=== PATIENT | male | born 1995 | race Caucasian/White ===

== ENCOUNTER 2017-03-19 13:51 | Inpatient (IN) | payer OTHER ==
[~2017-03-19] VITALS: Ht 175.3 cm; Wt 67.1 kg
--- NOTE | 2017-03-19 15:35 | NUR ---
Pre admission 21 Year old male from [facility]. Patient presents slow responsive, patient is alert and oriented x4, patient reports he is here to detox off of xanax. Reports also using LSD, and marijuana. Patient bp: 124/58 P 69, t: 98.0 r: 16, o2 sat: 98% room air. Patient was explained all policy and procedures with good verbal understanding. Patient denies any food or drug allergies. Patient denies any history of seizures. Reports past medical history of anxiety and depression dx: age [address]. [address] Gaston at intake and will assess patient.
[2017-03-19] MEDS ORDERED: ONDANSETRON ODT 4 MG TAB.RAPDIS SL PRN (16:00)
[2017-03-19] MEDS ORDERED: ONDANSETRON 4 MG/2 ML VIAL IM PRN (16:00)
[2017-03-19] MEDS ORDERED: DICYCLOMINE HCL 20 MG TABLET PO PRN (16:00)
[2017-03-19] MEDS ORDERED: diphenhydrAMINE 50 MG CAPSULE PO PRN (16:00)
[2017-03-19] MEDS ORDERED: LOPERAMIDE HCL 2 MG CAPSULE PO PRN ×2 (16:00)
[2017-03-19] MEDS ORDERED: IBUPROFEN 400 MG TABLET PO PRN (16:00)
[2017-03-19] MEDS ORDERED: CLONIDINE HCL 0.1 MG TABLET PO PRN (16:00)
[2017-03-19] MEDS ORDERED: MAG HYDROX/AL HYDROX/SIMETH 30 ML LIQUID UDC PO PRN (16:00)
[2017-03-19] MEDS ORDERED: HYDROXYZINE PAMOATE 25 MG CAPSULE PO PRN (16:00)
[2017-03-19] MEDS ORDERED: ACETAMINOPHEN 325 MG TABLET PO PRN (16:00)
[2017-03-19] MEDS ORDERED: LORAZEPAM 1 MG TABLET PO PRN ×2 (16:00)
[2017-03-19] MEDS ORDERED: LORAZEPAM 2 MG/1 ML VIAL IM PRN (16:00)
[2017-03-19] MEDS ORDERED: MIRALAX 17 GM POWD.PACK PO PRN (16:00)
--- NOTE | 2017-03-19 16:05 | NUR ---
[facility]ION [facility], patient noted with steady gait, patients body search completed by male intake staff, no contraband found. Patients body assessment completed, skin is intact, no breakdown, bruising or discoloration noted. Patient is 5 feet 9 inches and weights 148 lbs. patient was oriented to unit and to room, educated regarding call light use with good verbal understanding. Patient reports he is from [place], but currently residing in [place] with a friend. Patient vital signs WNL. Patient reports substance use of: Xanax 6mg every two days for the past two weeks, last took 6mg on 03/19/2017 at 0900. LSD 2 tabs of unknown strength every two days on/off cannot recall for how long. Marijuana 0.5gram smoked twice a week since high school. Patient reports has been to two treatment centers, in the past for Xanax and LSD. Patient reports he is here to get off of drugs, as per patient reports family is concerned because I am able to predict the future, I have KVNG patient reports when he uses LSD I feel tuned in Patient reports he is able to perceive things beyond, like a 6th sense Dr. Freed was notified, and Dr. Gaston is aware. Patient patient denies any auditory of visual hallucinations. Patient denies any SI/HI. Patient denies any home medications. Reports psychiatric medical history of: depression, and anxiety at the age of 12. Reports he does not have a primary care physician. Patient denies any history of seizure. Patient reports he does not have any children. Reports family hx of substance abuse, mother used to abuse prescription pills, and father consumed alcohol. Patient noted drowsy during assessment, but able to make needs known. Patients respirations are even and unlabored, lungs are clear upon auscultation. Abdomen is soft and non distended, bowel sounds heard in all quadrants. Pupils equal and reactive to light, 3mm. Patient presented with no s/sx of withdrawal, admitting ciwa score of: 0. patients Safety measures are in place. call light kept with in reach. Patient endorsed to warehouse shift supervisor nurse. All pertinent information discussed.
[2017-03-19 17:12] LABS: BASOPHILS % (AUTO) 0.4 % (0.0-2.0); EOSINOPHILS # (AUTO) 0.2 K/uL (0.0-0.7); EOSINOPHILS % (AUTO) 2.8 % (0.0-7.0); HEMATOCRIT 45.2 % (40-50); HEMOGLOBIN 14.9 G/DL (14.0-18.0); LYMPHOCYTES % (AUTO) 26.4 % (20.5-51.5); MEAN CORPUSCULAR HGB CONC 33 g/dL (32.0-37.0); MEAN CORPUSCULAR VOLUME 91.1 FL (82.0-92.0); MONOCYTES # (AUTO) 0.8 K/UL (0.1-1.30); MONOCYTES % (AUTO) 10.2 % (0.0-11.0); NEUTROPHILS # (AUTO) 4.7 K/UL (1.8-8.9); NEUTROPHILS % (AUTO) 60.2 % (38.5-71.5); PLATELET COUNT (AUTO) 222 K/UL (150-450); RED BLOOD CELL COUNT(AUTO) 4.97 MIL/UL (4.7-6.1); WHITE BLOOD COUNT (AUTO) 7.7 K/UL (4.0-11.2)
[2017-03-19 17:26] LABS: ETHANOL < 3 MG/DL (0-0)
[2017-03-19 17:27] LABS: ALANINE AMINOTRANSFERASE 24 U/L (16-63); ALKALINE PHOSPHATASE 104 U/L (50-136); ASPARTATE AMINOTRANSFERASE 16 U/L (15-37); BILIRUBIN,TOTAL 0.4 mg/dL (0.2-1.0); CARBON DIOXIDE 33 mmol/L (21-32); CHLORIDE 107 mmol/L (98-107); CREATININE 1.1 mg/dL (0.6-1.3); GLUCOSE 94 mg/dL (74-106); MAGNESIUM 2.3 mg/dL (1.8-2.4); POTASSIUM 3.9 mmol/L (3.5-5.1); UREA NITROGEN, BLOOD 13 mg/dL (7-18)
[2017-03-19 17:56] VITALS: BP 113/66
[2017-03-19 18:36] LABS: *AMPHETAMINE, URINE NEGATIVE (NEGATIVE); *BARBITURATE, URINE NEGATIVE (NEGATIVE); *CANNABINOID, URINE POSITIVE (NEGATIVE); *COCCAINE, URINE NEGATIVE (NEGATIVE); *OPIATE, URINE NEGATIVE (NEGATIVE); *PHENCYCLIDINE SCREEN,URINE NEGATIVE (NEGATIVE)
--- NOTE | 2017-03-19 19:10 | NUR ---
Start of Shift Patient Received. Patient is in bed sleeping. Breathing even and non labored. No signs of pain or discomfort noted. 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 Patient also noted using LSD. Patient verbalizes no known allergies, wishes to be full code, following a vegetarian diet, skin noted intact, placed on fall and seizure precautions. Past medical history of Anxiety and Depression. No history of seizures noted. Per endorsement, patient is calm and cooperative with admission process but noted to be Lucid at times. Admission CIWA noted to be 0. All needs attended to promptly. Will continue plan of care as ordered
--- NOTE | 2017-03-19 19:11 | NUR ---
END OF SHIFT Patient in room, with eyes closed, respirations are even and unlabored, responsive to verbal stimuli, patients vital signs WNL. Patient endorsement report given to research investigator nurse, all pertinent information discussed.
[2017-03-19 20:45] VITALS: BP 114/61
[2017-03-19] MEDS: GABAPENTIN 300 MG CAPSULE PO SCH (21:00)
--- NOTE | 2017-03-19 21:46 | NUR ---
Medication Refused Patient noted in bed sleeping but easily aroused to verbal stimuli. Breathing even and non labored. No signs of pain or discomfort noted. Patient due for routine order for Neurontin 300mg. Patient verbalized I think I can do without it. Risks and Benefits explained. Patient verbalized understanding. Will continue to monitor.
[2017-03-20 00:20] VITALS: BP 117/65
--- NOTE | 2017-03-20 02:20 | NUR ---
PRN Medication Administration Patient verbalizing increased anxiety, nausea, noted to be very restless, and agitated. CIWA noted to be 16. PRN Ativan 2mg administered as per order. Patient also noted to be very pre-concerned with making phones to family. Explained to patient of protocol on making phone calls and was able patient verbalized understanding. Patient also noted to be lucid at times and verbalizing my age in reality is 23. All needs attended to promptly. Will continue to monitor for effectiveness of medication.
--- NOTE | 2017-03-20 03:15 | NUR ---
PRN Medication Reassessment Patient noted returning from smoking patio. Patient verbalized "I smoked so it made me even more anxious." CIWA noted to be 4. Encouraged patient to stay in bed, dim lights and attempt to get some rest. Patient verbalized understanding. Will continue to monitor.
[2017-03-20 04:45] VITALS: BP 145/93
[2017-03-20 06:08] LABS: HEPATITIS B SURFACE AG Negative (Negative)
--- NOTE | 2017-03-20 07:09 | NUR ---
End of Shift Patient is in his room, awake, alert and verbally responsive. Breathing even and non labroed. No signs of pain or discomfort noted. 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 Patient also noted using LSD. Patient verbalizes no known allergies, wishes to be full code, following a vegetarian diet, skin noted intact, placed on fall and seizure precautions. Past medical history of Anxiety and Depression. No history of seizures noted. Patient refused routine dose of Neurontin at 2100. Patient was also given PRN Ativan 2 mg for CIWA of 16 with medication noted to be effective. CIWA 4. All needs attended to promptly. Will continue plan of care as ordered
[2017-03-20 08:00] VITALS: BP 139/91
--- NOTE | 2017-03-20 08:10 | NUR ---
START OF SHIFT: RECEIVED PT A/O X 4. HE PRESENTS WITH ANXIOUS MOOD. HE INSISTS ON ONLY DRINKING DISTILLED WATER AND STATES THAT REGULAR WATER HAS FLORIDE IN IT. CONTACTED [facility] DEFENSIVE FIRE CONTROL SYSTEMS OPERATOR TO ACCOMMODATE PT'S NEEDS. PT DENIES S/S OF W/D. PPD PLANTED TO LFA. HE STATES HE IS NO LONGER UNDER THE INFLUENCE OF LSD. ENCOURAGED REST AND INCREASED FLUIDS TODAY.PT REFUSED NEURONTIN. MADE AWARE. PT EDUCATED ON POTENTIAL CONSEQUENCES OF REFUSING MEDS. PT EXPRESSED VERBAL UNDERSTANDING OF EDUCATION. WILL CONTINUE TO MONITOR AND PROVIDE SUPPORT. Addendum: 03/20/17 at 1034 by HI SARABIA RN SU Lawrence
[2017-03-20] MEDS ORDERED: TUBERCULIN,PURIF.PROT.DERIV. 5 TU/0.1 ML TEST ID ONE (09:00)
[2017-03-20] MEDS: MULTIVITAMINS,THERAPEUTIC TABLET PO SCH (09:43)
[2017-03-20] MEDS: GABAPENTIN 300 MG CAPSULE PO SCH ×2 (09:43→20:57)
--- NOTE | 2017-03-20 11:31 | NUR ---
ENDORSED CARE OF PT TO STAFF NURSE
--- NOTE | 2017-03-20 11:32 | NUR ---
Pt report SBAR report rcv'd. Will continue to monitor the pt.
[2017-03-20] MEDS ORDERED: LORAZEPAM 1 MG TABLET PO PRN ×4 (12:15→19:45)
[2017-03-20 12:30] VITALS: BP 151/96
[2017-03-20 16:30] VITALS: BP 151/104
--- NOTE | 2017-03-20 19:10 | NUR ---
Start of Shift Patient Received. Patient is noted in his room, awake, alert and verbally responsive. Breathing even and non labored. Patient is able to carry conversation but denies signs or symptoms of withdrawal. Patient noted to be pre-concerned with his bed and sleeping on the mattress. Patient wishes to sleep on bed flat and not on actual mattress. Explained to patient that mattress cannot be placed against the wall for safety reasons. Patient verbalized understanding. Patient is very calm and cooperative dispite concerns. Encouraged patient to drink plenty of fluids and to attempt to get some rest. Patient verbalized understanding. 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 Patient also noted using LSD. Patient verbalizes no known allergies, wishes to be full code, following a vegan diet, skin noted intact, placed on fall and seizure precautions. Past medical history of Anxiety and Depression. No history of seizures noted. Per endorsement, patients last noted CIWA is 4. All needs attended to promptly. Will continue plan of care as ordered.
--- NOTE | 2017-03-20 19:12 | NUR ---
End of shift note Pt was admitted for benzo dependence. Pt has a PMHx of anxiety and depression. Pt is full code, on a regular vegan diet and denies any allergies to medications. Pt is on PRN mediation to manage his s/s of withdrawal. Pt did not require any PRN medication during the shift. Pt ate no breakfast, 50% of lunch, 100% of dinner, pt drank 975 ml of fluids, had 3 voids and no BM's during the shift. Pt had a COWS and CIWA of 7 and 7 at 1600. Pt has no complaints at this time. Will endorse SBAR to oncoming shift. All needs addressed at this time.
[2017-03-20 20:14] VITALS: BP 137/92
[2017-03-20] MEDS ORDERED: LORAZEPAM 1 MG TABLET PO ONE (21:00)
[2017-03-20] MEDS ORDERED: LORAZEPAM 1 MG TABLET ONE ×2 (21:08→22:08)
--- NOTE | 2017-03-20 22:00 | NUR ---
PRN Medication Administration Patient noted in room, awake, alert and verbally responsive. Breathing even and non labored. Patient noted to be slightly agitated due to patient wanting to make a phone call. PRN Ativan 1mg administered as per orders with a CIWA of 8. Will continue to monitor for effectiveness of medication.
--- NOTE | 2017-03-20 23:00 | NUR ---
PRN Medication Reassessment Patient is able to verbalize PRN Ativan 1mg was effective in reducing Anxiety and agitation. PRN medication noted to be effective. CIWA noted to be 2. Patient verbalized "Im going to try and get some sleep." Will continue to monitor.
[2017-03-21 00:10] VITALS: BP 108/72
[2017-03-21 04:36] VITALS: BP 111/79
--- NOTE | 2017-03-21 07:04 | NUR ---
End of Shift Patient is in bed sleeping but easily aroused to verbal stimuli. Breathing even and non labored. No signs of pain or discomfort noted. 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 Patient also noted using LSD. No known allergies, Full Code, following a vegan diet, skin noted intact, placed on fall and seizure precautions. Past medical history of Anxiety and Depression. No history of seizures noted. Patient given PRN Ativan 1 mg for CIWA of 8 with medication noted to be effective. All needs attended to promptly. Will continue plan of care as ordered.
--- NOTE | 2017-03-21 07:10 | NUR ---
Start of shift note Pt was admitted for benzo dependence and LSD and marijuana abuse. Pt has a PMHx of anxiety and depression. Pt is on a vegan regular diet, denies any allergies and is a full code. Pt is on PRN medication to manage his s/s of withdrawal. Per report, pt had ativan x 2 during the shift. Pt states that he does not want to stay in detox anymore, pt stated to the nurse "I am just doing this for my parents, I'm not actually ready". Administration staff and Dr Gaston notified. Pt is re-directable at this time. Will continue to monitor pt. All other needs addressed at this time.
[2017-03-21 08:00] VITALS: BP 140/91
[2017-03-21] MEDS: GABAPENTIN 300 MG CAPSULE PO SCH ×2 (08:41→21:14)
[2017-03-21] MEDS: MULTIVITAMINS,THERAPEUTIC TABLET PO SCH (08:42)
--- NOTE | 2017-03-21 09:00 | NUR ---
Medication refusal Pt refused gabapentin.
[2017-03-21 12:00] VITALS: BP 149/95
[2017-03-21] MEDS ORDERED: HYDR-3895 PO (14:41)
[2017-03-21] MEDS ORDERED: GABA-534 PO (14:41)
[2017-03-21] MEDS ORDERED: DIPH50CA37 PO (14:41)
[2017-03-21] MEDS ORDERED: IBUP-1953 PO (14:41)
[2017-03-21 16:00] VITALS: BP 142/96
--- NOTE | 2017-03-21 19:10 | NUR ---
End of shift note Pt was admitted for benzo dependence and LSD and marijuana abuse. Pt has a PMHx of anxiety and depression. Pt is on a vegan regular diet, denies any allergies and is a full code. Pt is on PRN medication to manage his s/s of withdrawal and did not require any PRN medication during the shift. Pt is scheduled to discharge tomorrow and states that he feels ready for discharge. . Pt drank 1800ml of fluid, had 4 voids, ate25% of breakfast, 25% of lunch and 100% of dinner. At 1600 pt had a CIWA of 1. Pt has no complaints at this time. Will endorse SBAR to oncoming shift.
--- NOTE | 2017-03-21 19:50 | NUR ---
START OF SHIFT Received report from day shift nurse. Pt is in his room watching TV. He is a 21 yo male admitted to [facility] on 03/19 for BZD dependence. He is A&O x4 and ambulatory. NKA, full code, regular vegan diet. PMH of anxiety and depression. On admission he reported using xanax 6mg every two days for 2 weeks, LSD 2 tabs every two days, and marijuana 0.5 grams every two days. Pt was ordered PRNs for the management of withdrawal symptoms. Pt is scheduled for discharge tomorrow. He reports mild anxiety. Minimal other s/s of withdrawal noted. Fall precautions in place. Bed is down with call light in reach.
[2017-03-21 20:00] VITALS: BP 122/90
[2017-03-22] VITALS: BP 136/76
--- NOTE | 2017-03-22 | NUR ---
0000 CIWA deferred CIWA ordered Q4HWA. Pt is lying in bed resting with eyes closed. Respirations even and unlabored. Vital signs obtained. Safety measures in place.
--- NOTE | 2017-03-22 04:00 | NUR ---
0400 vitals refused/CIWA deferred Pt refused to be woken for 0400 vitals. He is lying in bed resting with eyes closed. Respirations even and unlabored. CIWA ordered Q4HWA. Safety measures in place.
--- NOTE | 2017-03-22 07:37 | NUR ---
END OF SHIFT Report provided to day shift nurse. Pt is getting ready for the day. He is a 21 yo male admitted to [facility] on 03/19 for BZD dependence. He is A&O x4 and ambulatory. NKA, full code, regular vegan diet. PMH of anxiety and depression. On admission he reported using xanax 6mg every two days for 2 weeks, LSD 2 tabs every two days, and marijuana 0.5 grams every two days. Pt was ordered PRNs for the management of withdrawal symptoms. He is scheduled for discharge today Minimal s/s of withdrawal noted. Last CIWA was 1. He drank 1120mL and slept for 8 hours[address] Fall precautions in place. Bed is down with call light in reach.
[2017-03-22 08:00] VITALS: BP 142/85
--- NOTE | 2017-03-22 08:00 | NUR ---
START OF SHIFT: RECEIVED PT A/O X 4.HE DENIES S/S OF W/D AT THIS TIME. DISCHARGE PLANNING IN PROGRESS FOR THIS AM. CIWA 1. WILL CONTINUE TO PROVIDE SAFE AND SUPPORTIVE ENVIRONMENT.
[2017-03-22] MEDS: GABAPENTIN 300 MG CAPSULE PO SCH (09:00)
[2017-03-22] MEDS: MULTIVITAMINS,THERAPEUTIC TABLET PO SCH (09:12)
--- NOTE | 2017-03-22 10:00 | NUR ---
DISCHARGE: PT IS A/O X4. HE DENIES S/I AND H/I. HE STATES HE IS MOTIVATED TO STAY CLEAN AND FEELS ENTHUSIASTIC. BELONGINGS RETURNED. EDUCATED PT ON DISCHARGE INSTRUCTIONS AND MEDICATIONS. ENVIRONMENTAL ENGINEERING ASSISTANT ESCORTED PT TO [facility] WHERE HE WAS TRANSPORTED BY [facility] AT 0940.
== END 2017-03-22 09:40 | disposition other institution (70) | DRG 895 ==
LOC: SRC 14:59
PROVIDERS: ADMIT Internal Medicine; ATTEND Internal Medicine
PROC: HZ2ZZZZ Detoxification Services for Substance Abuse Treatment (ICD-10-PCS; principal; 2017-03-19)
PROC: HZ41ZZZ Group Counseling for Substance Abuse Treatment, Behavioral (ICD-10-PCS; 2017-03-20)
DX: F16.22 Hallucinogen dependence with intoxication (principal); E87.3 Alkalosis; Z94.89 Other transplanted organ and tissue status; I15.9 Secondary hypertension, unspecified; F13.120 Sedative, hypnotic or anxiolytic abuse with intoxication, uncomplicated; F31.9 Bipolar disorder, unspecified; F90.9 Attention-deficit hyperactivity disorder, unspecified type; Z81.3 Family history of other psychoactive substance abuse and dependence; Z81.8 Family history of other mental and behavioral disorders; E86.0 Dehydration; F17.211 Nicotine dependence, cigarettes, in remission; F12.90 Cannabis use, unspecified, uncomplicated
CPT/HCPCS: 36415; 70030-TC; 80307; 80346; 80349; 83735; 85025; 86580; 86592; 86705; 86803; 87340; 87806; G0480